=== PATIENT | female | born 1960 | race Caucasian/White ===

== ENCOUNTER 2022-12-18 11:35 | Inpatient (IN) ==
[2022-12-18] MEDS ORDERED: IOPAMIDOL 100 ML BOTTLE IV ONE (11:36)
[2022-12-18 13:12] LABS: POC Calcium, Ionized 1.04 (1.16-1.32); POC Creatinine 1.5 (0.6-1.2); POC Potassium 3.4 (3.3-5.1)
[2022-12-18] MEDS ORDERED: 0.9 % SODIUM CHLORIDE 2,000 ML IV ONE (14:23)
[2022-12-18 14:48] LABS: Appearance,Urine HAZY (Clear); Bacteria,Urine FEW /hpf (0); Bilirubin,Urine Negative (Negative); Color,Urine YELLOW; Culture Indicated,Urine yes; Glucose,Urine (UA) >=500 mg/dL (Negative); Ketones,Urine 20 mg/dL (Negative); Leukocyte Esterase,Urine 250 /uL (Negative); Mucus,Urine FEW /hpf; Nitrate,Urine Negative (Negative); Protein,Urine 100 mg/dL (Negative); Specific Gravity,Urine 1.021 (1.000-1.035); Urine RBC 24 /hpf (0-3); Urine Squamous Epithelial Cell 2 /hpf (0-4); Urine Transitional Epi Cells < 1 /hpf (0-2); Urine WBC 169 /hpf (0-4); Urobilinogen,Urine Negative
[2022-12-18 15:19] LABS: Basophils # (Auto) 0.02 K/mcL (0.00-0.30); Basophils % (Auto) 0.1 % (0.0-2.0); Eosinophils # (Auto) 0.01 K/mcL (0.00-0.70); Eosinophils % (Auto) 0 % (0.0-7.0); Hematocrit 39.4 % (34.1-44.9); Hemoglobin 13.7 g/dL (11.2-15.7); Lymphocytes # (Auto) 1.32 K/mcL (1.50-4.80); Lymphocytes % (Auto) 4.7 % (15.5-49.0); Mean Cell Volume 85.1 fL (80.0-100.0); Mean Corpuscular HGB Conc 34.8 g/dL (31.0-36.0); Mean Platelet Volume 12.4 fL (8.8-12.5); Monocytes # (Auto) 1.52 K/mcL (0.10-0.90); Monocytes % (Auto) 5.4 % (1.0-12.0); Platelet Count 199 K/mcL (140-440); RBC 4.63 M/mcL (3.59-5.38); Red Cell Distribution Width 12.3 % (11.5-14.5); WBC 27.9 K/mcL (4.5-11.0)
[2022-12-18 15:23] LABS: ALT/SGPT 32 U/L (<40); AST/SGOT 32 U/L (<32); Albumin 2.6 gm/dL (3.2-5.2); Alkaline Phosphatase 274 U/L (39-117); Bilirubin,Direct 0.4 mg/dL (<0.3); Bilirubin,Total 0.7 mg/dL (0.1-1.0); Globulin 4.4 gm/dL (2.2-3.7)
[2022-12-18 16:02] LABS: Neutrophils % (Auto) 83.9 % (38.0-78.0)
[2022-12-18] MEDS ORDERED: cefTRIAXone 2 GM in DEXTROSE 5% IN WATER 50 ML IV ONE (17:12)
[2022-12-18] MEDS ORDERED: ACETAMINOPHEN 325 MG TABLET PO ONE (17:29)
[2022-12-18] MEDS ORDERED: ACETAMINOPHEN 500 MG TABLET PO ONE (17:35)
[2022-12-18] MEDS ORDERED: 0.9 % SODIUM CHLORIDE 1,000 ML IV SCH (20:15)
[2022-12-18] MEDS ORDERED: ONDANSETRON 4 MG/2 ML VIAL IV PRN (20:55)
[2022-12-18] MEDS ORDERED: ACETAMINOPHEN 325 MG TABLET PO PRN (21:01)
[2022-12-18 21:37] LABS: Phosphorous 3.8 mg/dL (2.5-4.5)
[2022-12-18] MEDS ORDERED: POTASSIUM CHLORIDE 20 MEQ TABLET PO ONE (21:50)
[2022-12-18] MEDS ORDERED: DEXTROSE 50% 50 ML VIAL IV PRN (21:50)
[2022-12-18] MEDS ORDERED: DEXTROSE 31 GM ORAL.SUSP PO PRN (21:50)
[2022-12-18] MEDS ORDERED: INSULIN LISPRO 1 UNIT/0.01 ML UNIT SQ ONE ×2 (22:50→22:59)
[2022-12-18] MEDS ORDERED: INSULIN REGULAR, HUMAN 1 UNIT/0.01 ML UNIT IV ONE (22:56)
[2022-12-18] MEDS ORDERED: INSULIN REGULAR, HUMAN 1 UNIT/0.01 ML UNIT ONE (23:00)
[2022-12-18] MEDS: INSULIN LISPRO 1 UNIT/0.01 ML UNIT SQ SCH (23:04)
[2022-12-18] MEDS: SENNOSIDES 1 TABLET PO SCH (23:10)
[2022-12-18] MEDS: DOCUSATE SODIUM 100 MG CAPSULE PO SCH (23:10)
[2022-12-18] MEDS: NACL 0.9% W/KCL 20MEQ 1,000 ML IV SCH (23:10)
[2022-12-18] MEDS: 0.9 % SODIUM CHLORIDE 10 ML SYRINGE IV SCH (23:13)
[2022-12-19] MEDS: NACL 0.9% W/KCL 20MEQ 1,000 ML IV SCH ×5 (04:28→23:13)
[2022-12-19 07:17] LABS: Basophils # (Auto) 0.03 K/mcL (0.00-0.30); Basophils % (Auto) 0.1 % (0.0-2.0); Eosinophils # (Auto) 0.02 K/mcL (0.00-0.70); Eosinophils % (Auto) 0.1 % (0.0-7.0); Hematocrit 33.5 % (34.1-44.9); Lymphocytes # (Auto) 1.64 K/mcL (1.50-4.80); Lymphocytes % (Auto) 4.8 % (15.5-49.0); Mean Cell Volume 84.4 fL (80.0-100.0); Mean Corpuscular HGB Conc 35.8 g/dL (31.0-36.0); Mean Platelet Volume 12.2 fL (8.8-12.5); Monocytes # (Auto) 1.91 K/mcL (0.10-0.90); Monocytes % (Auto) 5.6 % (1.0-12.0); Neutrophils % (Auto) 86.1 % (38.0-78.0); Platelet Count 166 K/mcL (140-440); RBC 3.97 M/mcL (3.59-5.38); Red Cell Distribution Width 12.5 % (11.5-14.5); WBC 34.1 K/mcL (4.5-11.0)
[2022-12-19] MEDS: 0.9 % SODIUM CHLORIDE 10 ML SYRINGE IV SCH ×3 (07:25→21:13)
[2022-12-19] MEDS: INSULIN LISPRO 1 UNIT/0.01 ML UNIT SQ SCH ×4 (07:32→21:11)
[2022-12-19] MEDS ORDERED: PIPERACILLIN SODIUM/TAZOBACTAM 3.375 GM in DEXTROSE 5% IN WATER 50 ML IV SCH (08:00)
[2022-12-19 08:11] LABS: Blood Urea Nitrogen 31 mg/dL (6-20); Carbon Dioxide 19 mmol/L (22-30); Chloride 96 mmol/L (96-108); Glomerular Filtration Rate 54; Glucose 312 mg/dL (70-105)
[2022-12-19] MEDS ORDERED: POTASSIUM CHLORIDE 20 MEQ TABLET PO ONE (08:30)
[2022-12-19] MEDS: DOCUSATE SODIUM 100 MG CAPSULE PO SCH ×2 (08:33→21:09)
[2022-12-19] MEDS: CALCIUM (OYSTER SHELL) 500 MG TABLET PO SCH ×2 (08:33→21:09)
[2022-12-19] MEDS: ENOXAPARIN 40 MG/0.4 ML SYRINGE SQ SCH (08:33)
[2022-12-19] MEDS ORDERED: cefTRIAXone 2 GM in DEXTROSE 5% IN WATER 50 ML IV SCH (09:00)
[2022-12-19] MEDS: CEFEPIME 2 GM VIAL IV SCH ×2 (11:07→21:13)
[2022-12-19] MEDS: INSULIN GLARGINE, HUMAN 1 UNIT/0.01 ML SQ SCH ×2 (11:42→21:11)
[2022-12-19 12:33] LABS: Hematocrit 34.6 % (34.1-44.9); Hemoglobin 12.1 g/dL (11.2-15.7); Mean Cell Volume 84.4 fL (80.0-100.0); Platelet Count 160 K/mcL (140-440); Red Cell Distribution Width 12.7 % (11.5-14.5); WBC 30.6 K/mcL (4.5-11.0)
[2022-12-19 13:20] LABS: ALT/SGPT 31 U/L (<40); AST/SGOT 45 U/L (<32); Albumin 1.5 gm/dL (3.2-5.2); Albumin/Globulin Ratio 0.4 (1.0-2.3); Alkaline Phosphatase 279 U/L (39-117); Beta Hydroxybutyrate 0.21 mmol/L (<0.27); Bilirubin,Total 0.7 mg/dL (0.1-1.0); Blood Urea Nitrogen 26 mg/dL (6-20); Carbon Dioxide 22 mmol/L (22-30); Chloride 97 mmol/L (96-108); Globulin 3.8 gm/dL (2.2-3.7); Glomerular Filtration Rate 61; Glucose 319 mg/dL (70-105)
[2022-12-19 13:50] LABS: Band Neutrophils % 11 % (0-10); Lymphocytes % 10 % (15-49); Metamyelocytes % 1 %; Monocytes % (Manual) 8 % (1-12); Myelocytes % 1 %; Platelet Estimate NORMAL (Normal); RBC Morphology NORMAL (Normal); Segmented Neutrophils % 69 % (38-78); Toxic Granulation OCC (None Seen)
[2022-12-19] MEDS: SENNOSIDES 1 TABLET PO SCH (21:09)
[2022-12-19 22:59] LABS: Blood Urea Nitrogen 21 mg/dL (6-20); Calcium 8.2 mg/dL (8.6-10.4); Carbon Dioxide 21 mmol/L (22-30); Chloride 99 mmol/L (96-108); Glomerular Filtration Rate 69; Glucose 265 mg/dL (70-105)
[2022-12-20 02:12] LABS: Appearance,Urine CLEAR (Clear); Bacteria,Urine FEW /hpf (0); Bilirubin,Urine Negative (Negative); Color,Urine YELLOW; Culture Indicated,Urine yes; Glucose,Urine (UA) >=500 mg/dL (Negative); Ketones,Urine Negative (Negative); Leukocyte Esterase,Urine 75 /uL (Negative); Mucus,Urine FEW /hpf; Nitrate,Urine Negative (Negative); Protein,Urine 30 mg/dL (Negative); Specific Gravity,Urine 1.008 (1.000-1.035); Urine RBC 14 /hpf (0-3); Urine Squamous Epithelial Cell 1 /hpf (0-4); Urine WBC 13 /hpf (0-4); Urobilinogen,Urine Negative
[2022-12-20] MEDS: NACL 0.9% W/KCL 20MEQ 1,000 ML IV SCH ×4 (04:07→20:55)
[2022-12-20] MEDS: CEFEPIME 2 GM VIAL IV SCH ×3 (05:16→22:36)
[2022-12-20] MEDS: 0.9 % SODIUM CHLORIDE 10 ML SYRINGE IV SCH ×4 (05:17→22:37)
[2022-12-20 07:18] LABS: Blood Urea Nitrogen 20 mg/dL (6-20); Calcium 8.4 mg/dL (8.6-10.4); Carbon Dioxide 21 mmol/L (22-30); Chloride 103 mmol/L (96-108); Glomerular Filtration Rate 80; Glucose 229 mg/dL (70-105)
[2022-12-20 07:19] LABS: Basophils # (Auto) 0.16 K/mcL (0.00-0.30); Basophils % (Auto) 0.5 % (0.0-2.0); Eosinophils # (Auto) 0.02 K/mcL (0.00-0.70); Eosinophils % (Auto) 0.1 % (0.0-7.0); Hemoglobin 12.3 g/dL (11.2-15.7); Lymphocytes # (Auto) 1.64 K/mcL (1.50-4.80); Lymphocytes % (Auto) 5.3 % (15.5-49.0); Mean Cell Volume 85.2 fL (80.0-100.0); Mean Corpuscular HGB Conc 35.1 g/dL (31.0-36.0); Mean Platelet Volume 12.2 fL (8.8-12.5); Monocytes # (Auto) 2.03 K/mcL (0.10-0.90); Monocytes % (Auto) 6.5 % (1.0-12.0); Neutrophils % (Auto) 83.9 % (38.0-78.0); Platelet Count 162 K/mcL (140-440); RBC 4.11 M/mcL (3.59-5.38); Red Cell Distribution Width 13.2 % (11.5-14.5); WBC 31.2 K/mcL (4.5-11.0)
[2022-12-20] MEDS: INSULIN LISPRO 1 UNIT/0.01 ML UNIT SQ SCH ×4 (08:22→21:21)
[2022-12-20] MEDS: INSULIN GLARGINE, HUMAN 1 UNIT/0.01 ML SQ SCH ×2 (08:23→21:22)
[2022-12-20] MEDS: ENOXAPARIN 40 MG/0.4 ML SYRINGE SQ SCH (08:24)
[2022-12-20] MEDS: CALCIUM (OYSTER SHELL) 500 MG TABLET PO SCH ×2 (08:26→21:20)
[2022-12-20] MEDS: DOCUSATE SODIUM 100 MG CAPSULE PO SCH ×2 (08:27→21:23)
[2022-12-20 09:01] LABS: Appearance,Urine CLEAR (Clear); Bilirubin,Urine Negative (Negative); Color,Urine YELLOW; Culture Indicated,Urine No; Glucose,Urine (UA) 150 mg/dL (Negative); Ketones,Urine 5 mg/dL (Negative); Leukocyte Esterase,Urine 250 /uL (Negative); Mucus,Urine FEW /hpf; Nitrate,Urine Negative (Negative); Protein,Urine Negative (Negative); Urine RBC 6 /hpf (0-3); Urine Squamous Epithelial Cell < 1 /hpf (0-4); Urine WBC 6 /hpf (0-4); Urobilinogen,Urine Negative
[2022-12-20] MEDS: SENNOSIDES 1 TABLET PO SCH (21:23)
[2022-12-21] MEDS: NACL 0.9% W/KCL 20MEQ 1,000 ML IV SCH ×3 (01:03→10:49)
[2022-12-21] MEDS: 0.9 % SODIUM CHLORIDE 10 ML SYRINGE IV SCH ×3 (05:57→20:58)
[2022-12-21] MEDS: CEFEPIME 2 GM VIAL IV SCH (05:57)
[2022-12-21 06:49] LABS: Basophils % (Auto) 0.5 % (0.0-2.0); Eosinophils # (Auto) 0.05 K/mcL (0.00-0.70); Eosinophils % (Auto) 0.2 % (0.0-7.0); Hematocrit 35.1 % (34.1-44.9); Hemoglobin 12.2 g/dL (11.2-15.7); Lymphocytes # (Auto) 2.16 K/mcL (1.50-4.80); Mean Cell Volume 84.6 fL (80.0-100.0); Mean Corpuscular HGB Conc 34.8 g/dL (31.0-36.0); Mean Platelet Volume 11.6 fL (8.8-12.5); Monocytes # (Auto) 1.82 K/mcL (0.10-0.90); Monocytes % (Auto) 8.4 % (1.0-12.0); Platelet Count 196 K/mcL (140-440); RBC 4.15 M/mcL (3.59-5.38); Red Cell Distribution Width 13.7 % (11.5-14.5); WBC 21.7 K/mcL (4.5-11.0)
[2022-12-21 07:11] LABS: Blood Urea Nitrogen 15 mg/dL (6-20); Carbon Dioxide 22 mmol/L (22-30); Chloride 102 mmol/L (96-108); Glomerular Filtration Rate 80; Glucose 137 mg/dL (70-105)
[2022-12-21] MEDS: INSULIN LISPRO 1 UNIT/0.01 ML UNIT SQ SCH ×4 (07:24→20:56)
[2022-12-21] MEDS: INSULIN GLARGINE, HUMAN 1 UNIT/0.01 ML SQ SCH ×2 (08:45→20:55)
[2022-12-21] MEDS: DOCUSATE SODIUM 100 MG CAPSULE PO SCH ×2 (08:45→20:55)
[2022-12-21] MEDS: CALCIUM (OYSTER SHELL) 500 MG TABLET PO SCH ×2 (08:45→20:55)
[2022-12-21] MEDS: ENOXAPARIN 40 MG/0.4 ML SYRINGE SQ SCH (08:45)
[2022-12-21 12:18] LABS: Appearance,Urine CLEAR (Clear); Bilirubin,Urine Negative (Negative); Color,Urine YELLOW; Culture Indicated,Urine No; Glucose,Urine (UA) 150 mg/dL (Negative); Ketones,Urine Negative (Negative); Leukocyte Esterase,Urine 25 /uL (Negative); Mucus,Urine FEW /hpf; Nitrate,Urine Negative (Negative); Protein,Urine Negative (Negative); Specific Gravity,Urine 1.008 (1.000-1.035); Urine Blood 0.03 mg/dL (Negative); Urine RBC 2 /hpf (0-3); Urine Squamous Epithelial Cell < 1 /hpf (0-4); Urine WBC 4 /hpf (0-4); Urobilinogen,Urine Negative
[2022-12-21] MEDS: ceFAZolin 1 GM VIAL IV SCH ×2 (14:46→21:06)
[2022-12-21] MEDS: SENNOSIDES 1 TABLET PO SCH (20:55)
[2022-12-22] MEDS: ceFAZolin 1 GM VIAL IV SCH (05:14)
[2022-12-22] MEDS: 0.9 % SODIUM CHLORIDE 10 ML SYRINGE IV SCH (05:15)
[2022-12-22 06:56] LABS: Basophils # (Auto) 0.09 K/mcL (0.00-0.30); Basophils % (Auto) 0.6 % (0.0-2.0); Eosinophils # (Auto) 0.07 K/mcL (0.00-0.70); Eosinophils % (Auto) 0.4 % (0.0-7.0); Hematocrit 36.8 % (34.1-44.9); Hemoglobin 13.1 g/dL (11.2-15.7); Lymphocytes # (Auto) 2.21 K/mcL (1.50-4.80); Lymphocytes % (Auto) 13.6 % (15.5-49.0); Mean Cell Volume 84.2 fL (80.0-100.0); Mean Corpuscular HGB Conc 35.6 g/dL (31.0-36.0); Mean Platelet Volume 12.3 fL (8.8-12.5); Monocytes # (Auto) 1.56 K/mcL (0.10-0.90); Monocytes % (Auto) 9.6 % (1.0-12.0); Neutrophils % (Auto) 70.9 % (38.0-78.0); Platelet Count 226 K/mcL (140-440); RBC 4.37 M/mcL (3.59-5.38); Red Cell Distribution Width 13.2 % (11.5-14.5); WBC 16.2 K/mcL (4.5-11.0)
[2022-12-22 07:36] LABS: Blood Urea Nitrogen 12 mg/dL (6-20); Calcium 8.4 mg/dL (8.6-10.4); Carbon Dioxide 28 mmol/L (22-30); Chloride 94 mmol/L (96-108); Glomerular Filtration Rate 69; Glucose 153 mg/dL (70-105)
[2022-12-22] MEDS: INSULIN LISPRO 1 UNIT/0.01 ML UNIT SQ SCH ×2 (08:12→11:51)
[2022-12-22] MEDS: DOCUSATE SODIUM 100 MG CAPSULE PO SCH (09:06)
[2022-12-22] MEDS: ENOXAPARIN 40 MG/0.4 ML SYRINGE SQ SCH (09:06)
[2022-12-22] MEDS: CALCIUM (OYSTER SHELL) 500 MG TABLET PO SCH (09:06)
[2022-12-22] MEDS: INSULIN GLARGINE, HUMAN 1 UNIT/0.01 ML SQ SCH (09:07)
== END 2022-12-22 13:24 | disposition home or self-care (01) | DRG 871 ==
LOC: ED 11:35 → MEDSUR 21:41
PROVIDERS: ADMIT Internal Medicine Critical Care Medicine; ATTEND Internal Medicine Critical Care Medicine